=== PATIENT | male | born 1995 | race Caucasian/White ===

== ENCOUNTER 2019-09-18 06:54 | Emergency (ER) | payer BC ==
[~2019-09-18] VITALS: Ht 190.5 cm; Wt 71.8 kg
[~2019-09-18 06:54] MED LIST: ADDERALL10 MG PO; ADDERALL30 MG PO; ATIVAN 0.50.5 MG/TAB PO; CELEXA 20MG20 MG/TAB PO; IBU-6600 MG PO; IBU400 MG PO; NO HOME MEDICATIONS; NORCO 325 MG-51 TAB PO; PERCOCET 325 MG1 TA2 PO; ULTRAM 50MG TAB50 MG PO; ZOLOFT 50MG50 MG PO
[2019-09-18 07:00] VITALS: BP 143/93; PULSE 125; TEMP 98.2
[2019-09-18 07:39] LABS: BASO # 0.1 (0.0-0.2); BASO % 1.2 % (0.0-2.0); EOS % 0.2 % (0-4.0); GRAN # 2.9 (1.4-6.5); GRAN % 67.9 % (42.2-75.2); HEMATOCRIT 43.7 % (42.0-52.0); HEMOGLOBIN 15.3 g/dl (13.5-18.0); LYMPH # 0.8 (1.2-3.4); LYMPH % 17.9 % (20.0-51.0); MEAN CELL VOLUME 92 fl (80.0-100.0); MEAN CORPUSCULAR HEMOGLOBIN 32 pg (27.0-31.0); MEAN CORPUSCULAR HGB CONC 35 g/dl (33.0-37.0); MEAN PLATELET VOLUME 10.5 fl (7.4-10.4); MONO # 0.5 (0.1-0.6); MONO % 12.3 % (1.7-9.3); PLATELET COUNT 216 K/mm3 (130-400); RED BLOOD COUNT 4.76 M/mm3 (4.20-5.60)
[2019-09-18 08:05] LABS: ALBUMIN 5.5 gm/dL (3.5-5.0); BILIRUBIN,TOTAL 1.4 mg/dL (0.0-1.0); CREATININE, serum 0.69 (0.66-1.25); MAGNESIUM 1.1 mg/dL (1.6-2.3); POTASSIUM 3.1 mmol/L (3.4-5.0); TOTAL PROTEIN 8.8 gm/dL (6.4-8.2)
[2019-09-18 08:21] LABS: PROLACTIN 23.1 ng/mL (3.7-17.9)
[2019-09-18] MEDS ORDERED: LIBRIUM 25M25 MG/CAP PO (08:32)
[2019-09-18] MEDS ORDERED: KEPPRA 500MG500 MG PO (08:32)
[2019-09-18] MEDS ORDERED: MAG-OX 400400 MG/TAB PO (08:36)
[2019-09-18] MEDS ORDERED: K-TAB10 PO (08:36)
== END 2019-09-18 19:20 | disposition home or self-care (01) ==
LOC: COL.ER 06:54
PROVIDERS: Emergency Medicine
DX: G40.909 Epilepsy, unspecified, not intractable, without status epilepticus (principal)
CPT/HCPCS: J1953; J2060; J2405; J3475; J3480; J7030

== ENCOUNTER → 2019-11-06 | Outpatient (CLI) | payer BC ==
[~2019-11-06] MED LIST changes: +K-TAB10 PO; +KEPPRA 500MG500 MG PO; +LIBRIUM 25M25 MG/CAP PO; +MAG-OX 400400 MG/TAB PO
== END ==
LOC: COL.RAD 10:41
DX: N50.9 Disorder of male genital organs, unspecified (principal)

== ENCOUNTER 2020-03-02 20:34 | Emergency (ER) | payer BC ==
[~2020-03-02] VITALS: Ht 185.4 cm; Wt 72.7 kg
[2020-03-02 20:45] VITALS: TEMP 98.5
[2020-03-02 21:20] LABS: BASO % 0.2 % (0.0-2.0); EOS % 0.1 % (0-4.0); GRAN # 9.4 (1.4-6.5); GRAN % 73.6 % (42.2-75.2); HEMATOCRIT 37.8 % (42.0-52.0); HEMOGLOBIN 13.2 g/dl (13.5-18.0); LYMPH # 2.3 (1.2-3.4); LYMPH % 17.9 % (20.0-51.0); MEAN CELL VOLUME 88 fl (80.0-100.0); MEAN CORPUSCULAR HEMOGLOBIN 31 pg (27.0-31.0); MEAN CORPUSCULAR HGB CONC 35 g/dl (33.0-37.0); MEAN PLATELET VOLUME 10.9 fl (7.4-10.4); MONO % 7.9 % (1.7-9.3); PLATELET COUNT 250 K/mm3 (130-400); RED BLOOD COUNT 4.29 M/mm3 (4.20-5.60); REDCELL DISTRIBUTION WIDTH-CV 12.2 % (11.5-14.5)
[2020-03-02 21:35] LABS: ALANINE AMINOTRANSFERASE 87 U/L (4-49); ALBUMIN 4.8 gm/dL (3.5-5.0); ALKALINE PHOSPHATASE 72 U/L (50-136); ANION GAP 13 mmol/L (7-16); AST,SGOT 104 U/L (15-37); BILIRUBIN,TOTAL 4.2 mg/dL (0.0-1.0); BLOOD UREA NITROGEN 17 mg/dL (9-20); C-REACTIVE PROTEIN 0.7 mg/dL (0.0-0.9); CALCIUM 9.5 mg/dL (8.4-10.2); CARBON DIOXIDE 28 mmol/L (22-30); CHLORIDE 93 mmol/L (98-107); CREATININE, serum 0.82 (0.66-1.25); GLUCOSE 115 mg/dL (74-106); LIPASE 100 U/L (23-300); MAGNESIUM 1.8 mg/dL (1.6-2.3); PHOSPHOROUS 1.2 mg/dL (2.5-4.5); POTASSIUM 3.2 mmol/L (3.4-5.0); SODIUM 134 mmol/L (137-145); TOTAL PROTEIN 8.1 gm/dL (6.4-8.2)
[2020-03-02 21:38] LABS: ALCOHOL(ethanol),MEDICAL < 10 mg/dL
[2020-03-02] MEDS ORDERED: ZOFRAN 4MG T4 MG/TAB PO (22:22)
[2020-03-02] MEDS ORDERED: K-DUR20 MEQ PO (22:22)
[2020-03-02 23:01] VITALS: BP 128/72; PULSE 50
== END 2020-03-02 23:02 | disposition home or self-care (01) ==
LOC: COL.ER 20:34
PROVIDERS: Emergency Medicine
DX: F10.239 Alcohol dependence with withdrawal, unspecified (principal); E87.6 Hypokalemia; R51 Headache
CPT/HCPCS: J2060; J7030

== ENCOUNTER 2021-03-12 15:27 | Observation (INO) | payer BC ==
[~2021-03-12] VITALS: Ht 190.5 cm; Wt 68.2 kg
[~2021-03-12 15:27] MED LIST changes: +K-DUR20 MEQ PO; +ZOFRAN 4MG T4 MG/TAB PO
[2021-03-12 15:43] LABS: BASO % 0.4 % (0.0-2.0); EOS % 0.4 % (0-4.0); GRAN # 4.8 (1.4-6.5); GRAN % 64.8 % (42.2-75.2); HEMATOCRIT 45.1 % (42.0-52.0); HEMOGLOBIN 15.7 g/dl (13.5-18.0); LYMPH # 1.8 (1.2-3.4); LYMPH % 24.5 % (20.0-51.0); MEAN CELL VOLUME 87 fl (80.0-100.0); MEAN CORPUSCULAR HEMOGLOBIN 30 pg (27.0-31.0); MEAN CORPUSCULAR HGB CONC 35 g/dl (33.0-37.0); MEAN PLATELET VOLUME 10.5 fl (7.4-10.4); MONO # 0.7 (0.1-0.6); MONO % 9.6 % (1.7-9.3); PLATELET COUNT 280 K/mm3 (130-400); RED BLOOD COUNT 5.21 M/mm3 (4.20-5.60); REDCELL DISTRIBUTION WIDTH-CV 13.5 % (11.5-14.5)
[2021-03-12 16:03] LABS: ALBUMIN 4.5 gm/dL (3.5-5.0); ALKALINE PHOSPHATASE 91 U/L (50-136); ANION GAP 13 mmol/L (7-16); AST,SGOT 98 U/L (15-37); BILIRUBIN,TOTAL 3.4 mg/dL (0.0-1.0); BLOOD UREA NITROGEN 12 mg/dL (9-20); CALCIUM 9.6 mg/dL (8.4-10.2); CARBON DIOXIDE 19 mmol/L (22-30); CHLORIDE 97 mmol/L (98-107); CREATININE, serum 0.74 (0.66-1.25); GLUCOSE 152 mg/dL (74-106); MAGNESIUM 1.8 mg/dL (1.6-2.3); POTASSIUM 4.6 mmol/L (3.4-5.0); SODIUM 129 mmol/L (137-145); TOTAL PROTEIN 7.7 gm/dL (6.4-8.2)
[2021-03-12 16:04] LABS: ALCOHOL(ethanol),MEDICAL < 10 mg/dL
[2021-03-12] MEDS ORDERED: KLONOPIN2 MG PO (16:21)
[2021-03-12] MEDS ORDERED: DESYREL 100MG100 MG PO (16:23)
[2021-03-12] MEDS ORDERED: INDERAL 20MG20 MG PO (16:23)
[2021-03-12] MEDS ORDERED: NEURONTIN600 MG/TAB PO (16:24)
[2021-03-12 17:10] LABS: ALANINE AMINOTRANSFERASE 32 U/L (4-49)
[2021-03-12 17:15] LABS: COLLECTION METHOD CLEAN CATCH
[2021-03-12 17:20] LABS: MUCOUS Present /lpf; PH 6 (5-8); SQUAMOUS EPITHELIAL None Seen /hpf; URINE APPEARANCE Hazy; URINE BACTERIA None Seen /hpf; URINE BILIRUBIN Negative (NEGATIVE); URINE BLOOD Negative (NEGATIVE); URINE COLOR Yellow; URINE GLUCOSE 1+ (NEGATIVE); URINE KETONE 2+ (NEGATIVE); URINE LEUKOCYTE ESTERASE Negative (NEGATIVE); URINE NITRATE Negative (NEGATIVE); URINE PROTEIN(semi-quant) 1+ (NEGATIVE); URINE RBC 0-2 /hpf; URINE UROBILINOGEN Negative (NEGATIVE)
[2021-03-12] MEDS ORDERED: SEROQUEL300 MG PO (18:22)
[2021-03-12] MEDS ORDERED: ZOLOFT 100MG100 MG PO (18:23)
[2021-03-12 19:15] LABS: TRICYCLIC ANTIDEPRESS URINE NEGATIVE
[2021-03-13] VITALS (9 sets, daily range): BP systolic 107–159; BP diastolic 50–93; PULSE 47–90; TEMP 97.8–99.1
--- NOTE | 2021-03-13 01:40 | NUR ---
Alfredo came up last night for alcohol withdarwal and seizure activity. He is alert x4,Independent. He is on seizure precautions. His CIWA is 7, he got ativan 1mg for he said that he is seeing things. He said that he is having visual hallucinations. He seems find for me. He had sandwich tray and finish the whole snacks. Otherwise he is resting comfortably in bed. Call light within reach. Continue to monitor.
[2021-03-13 07:06] LABS: BASO % 0.5 % (0.0-2.0); EOS # 0.1 (0.0-0.7); EOS % 2.3 % (0-4.0); GRAN # 2.8 (1.4-6.5); GRAN % 49.1 % (42.2-75.2); HEMATOCRIT 39.2 % (42.0-52.0); LYMPH # 2.1 (1.2-3.4); LYMPH % 37.3 % (20.0-51.0); MEAN CELL VOLUME 89 fl (80.0-100.0); MEAN CORPUSCULAR HEMOGLOBIN 30 pg (27.0-31.0); MEAN CORPUSCULAR HGB CONC 34 g/dl (33.0-37.0); MEAN PLATELET VOLUME 11.6 fl (7.4-10.4); MONO # 0.6 (0.1-0.6); MONO % 10.5 % (1.7-9.3); PLATELET COUNT 187 K/mm3 (130-400); RED BLOOD COUNT 4.39 M/mm3 (4.20-5.60)
[2021-03-13 07:16] LABS: CALCIUM 8.3 mg/dL (8.4-10.2); CREATININE, serum 0.76 (0.66-1.25); HEMOGLOBIN 13.2 g/dl (13.5-18.0); POTASSIUM 3.3 mmol/L (3.4-5.0)
--- NOTE | 2021-03-13 08:00 | NUR ---
PT WAS SLEEPING UPON ENTRY, APPEARED COMFORTABLE, WOKE PT UP TO TAKE MEDICATIONS, ASKED IF PT HAVING PAIN AND HE SAID YES BUT DID NOT ELABORATE FURTHER BEFORE CLOSING EYES AND LAYING BACK DOWN. ASSESSMENT PERFORMED, PT DID NOT QUALIFY FOR ATIVAN, IV FLUIDS INFUSING, NO OTHER NEEDS
--- NOTE | 2021-03-13 12:31 | NUR ---
PT SCORED 4 FOR CIWA, PULLED ATIVAN TO GIVE BUT PT SLEEPING COMFORTABLY SO NOT GIVEN.
--- NOTE | 2021-03-13 13:05 | NUR ---
Attempted assessment. Patient was sleepy and could not complete assessment. SW attempted contact with parent Dalia Landrum. Mother reports that she has not spoke with her son since before March and he had moved to . Mother reports that she did not know that he moved back to this area. Last PCP is Dr. Steen. Mother denies knowing anything else. Will attempt assessment again when client is more alert.
--- NOTE | 2021-03-13 15:54 | NUR ---
Patient more alert, reports that his PCP is Dr. Kavita Jeff. Patient reports that he could stay with his mother until he obtains an apartment in [facility] which he plans to do. Patient shares that he has a nebulizer that he uses prn. Patient indicated that he has heart medications but does not have epq for heart. Educated on services and supports. NF.
--- NOTE | 2021-03-13 16:05 | NUR ---
PT REPORTED SEEING A SHIMMER ON ITEMS IN THE ROOM AND REQUESTED ATIVAN, NEW SET OF VITALS TAKEN, PT DID NOT QUALIFY FOR ATIVAN. NO TREMORS, APPEARED CALM IN THE ROOM, NO OTHER NEEDS
--- NOTE | 2021-03-13 17:22 | NUR ---
pt pleasant, reports shimmering in visual field, not requiring ativan during shift, no other needs
--- NOTE | 2021-03-14 00:19 | NUR ---
Tori had a good shower last night. He complain of chest pain but he refused to get Tylenol and Motrin. I said he cannot get more stronger pain meds other than that. He got his night meds including seroquel and trazodone. He is asking fro his Ativan. I said there is scoring for Ativan to administer and he is not qualify for that. He seems upset. He mentioned it again to EMPLOYEE ADVISER when she did the VS. I went in there and I told him same thing. He agreed. He is sleeping this time. Continue to follow.
[2021-03-14 03:56] VITALS: BP 135/56; PULSE 72; TEMP 98.4
[2021-03-14 07:33] VITALS: BP 118/69; PULSE 44; TEMP 98.4
[2021-03-14 08:10] LABS: BASO % 0.7 % (0.0-2.0); EOS # 0.3 (0.0-0.7); EOS % 4.9 % (0-4.0); GRAN # 2.1 (1.4-6.5); GRAN % 36.9 % (42.2-75.2); HEMATOCRIT 37.1 % (42.0-52.0); HEMOGLOBIN 12.3 g/dl (13.5-18.0); LYMPH # 2.5 (1.2-3.4); LYMPH % 45.8 % (20.0-51.0); MEAN CELL VOLUME 92 fl (80.0-100.0); MEAN CORPUSCULAR HEMOGLOBIN 30 pg (27.0-31.0); MEAN CORPUSCULAR HGB CONC 33 g/dl (33.0-37.0); MEAN PLATELET VOLUME 11.6 fl (7.4-10.4); MONO # 0.6 (0.1-0.6); MONO % 11.5 % (1.7-9.3); PLATELET COUNT 159 K/mm3 (130-400); RED BLOOD COUNT 4.04 M/mm3 (4.20-5.60); REDCELL DISTRIBUTION WIDTH-CV 14.3 % (11.5-14.5)
--- NOTE | 2021-03-14 08:15 | NUR ---
RECIEVED MULTIPLE CALLS FROM TELE IN AM REPORTING HR IN LOW 30'S. VITALS OTHERWISE STABLE, PT IN DEEP SLEEP, WOKE PT UP AND PT DENIES SYMTPOMS OF BRADYCARDIA. HELD BETA BRYCE, CALLED PHARMACY ABOUT OTHER PSYCH MEDICATIONS, HELD MORNING DOSE DUE TO CAUSING PROLONGED QTC. CONTACTED PHYSICIAN, DEC PM DOSE OF SEROQUEL. PT ALSO REQUESTING NICODERM PATCH, OBTAINED ORDER FROM PHYSICIAN AND GAVE TO PT ALONG WITH OTHER NOT HELD MEDICATIONS. NO OTHER NEEDS
[2021-03-14 08:25] LABS: CALCIUM 8.2 mg/dL (8.4-10.2); CREATININE, serum 0.62 (0.66-1.25); MAGNESIUM 1.8 mg/dL (1.6-2.3); POTASSIUM 3.3 mmol/L (3.4-5.0)
[2021-03-14 09:56] VITALS: BP 139/81; PULSE 63
[2021-03-14 12:10] VITALS: BP 147/92; PULSE 67; TEMP 99.2
[2021-03-14] MEDS ORDERED: SEROQUEL50 MG PO (14:08)
--- NOTE | 2021-03-14 14:51 | NUR ---
DISCHARGE EDUCATION PROVIDED, IV REMOVED, PT ESCORTED OUT
== END 2021-03-14 15:03 | disposition home or self-care (01) ==
LOC: COL.ER 15:27 → MEDICAL 18:49
PROVIDERS: Internal Medicine; Nurse Practitioner; Student in an Organized Health Care Education/Training Program; ADMIT Internal Medicine
DX: F10.239 Alcohol dependence with withdrawal, unspecified (principal); G40.89 Other seizures; E87.1 Hypo-osmolality and hyponatremia; E87.6 Hypokalemia; S22.31XA Fracture of one rib, right side, initial encounter for closed fracture; E80.6 Other disorders of bilirubin metabolism; R00.1 Bradycardia, unspecified; I10 Essential (primary) hypertension; F41.8 Other specified anxiety disorders; F10.20 Alcohol dependence, uncomplicated; F17.200 Nicotine dependence, unspecified, uncomplicated; G62.9 Polyneuropathy, unspecified; Z79.899 Other long term (current) drug therapy
CPT/HCPCS: 99223-AI; 99231-AI; A9284; G0378; J2060; J2550; J7030

== ENCOUNTER 2021-11-09 11:23 | Inpatient (IN) | payer SELFPAY ==
[2021-11-09] VITALS (321 sets, daily range): BP systolic 89–118; BP diastolic 49–81; PULSE 68–88; TEMP 95–98.2; O2SAT 97–100
[~2021-11-09] VITALS: Ht 185.4 cm; Wt 67.7 kg
[~2021-11-09 11:23] MED LIST changes: +DESYREL 100MG100 MG PO; +INDERAL 20MG20 MG PO; +KLONOPIN2 MG PO; +NEURONTIN600 MG/TAB PO; +SEROQUEL300 MG PO; +SEROQUEL50 MG PO; +ZOLOFT 100MG100 MG PO
[2021-11-09 11:50] LABS: BASO # 0.1 K/mm3 (0.0-0.2); EOS # 0.2 K/mm3 (0.0-0.7); EOS % 3.3 % (0.0-4.0); GRAN # 2.4 K/mm3 (1.4-6.5); GRAN % 37.1 % (42.2-75.2); HEMOGLOBIN 13.9 g/dl (13.5-18.0); LYMPH # 3.3 K/mm3 (1.2-3.4); LYMPH % 51.7 % (20.0-51.0); MEAN CELL VOLUME 87 fl (80.0-100.0); MEAN CORPUSCULAR HEMOGLOBIN 30 pg (27-31); MEAN CORPUSCULAR HGB CONC 34 g/dl (33.0-37.0); MEAN PLATELET VOLUME 11.2 fl (7.4-10.4); MONO # 0.4 K/mm3 (0.1-0.6); MONO % 6.7 % (1.7-9.3); PLATELET COUNT 276 K/mm3 (130-400); RED BLOOD COUNT 4.69 M/mm3 (4.20-5.60); REDCELL DISTRIBUTION WIDTH-CV 12.2 % (11.5-14.5)
[2021-11-09 12:17] LABS: ALANINE AMINOTRANSFERASE 41 U/L (0-55); ALBUMIN 4.4 gm/dL (3.5-5.0); ALKALINE PHOSPHATASE 75 U/L (40-150); ANION GAP 11 mmol/L (7-16); AST,SGOT 49 U/L (5-34); BILIRUBIN,TOTAL 0.5 mg/dL (0.2-1.2); BLOOD UREA NITROGEN 8 mg/dL (9-21); CALCIUM 8.5 mg/dL (8.4-10.2); CARBON DIOXIDE 27 mmol/L (22-29); CHLORIDE 109 mmol/L (98-107); CREATININE, serum 0.72 mg/dL (0.72-1.25); GLUCOSE 91 mg/dL (70-99); POTASSIUM 3.7 mmol/L (3.5-4.5); SODIUM 147 mmol/L (136-145); TOTAL PROTEIN 7.3 gm/dL (6.2-8.1)
[2021-11-09 12:19] LABS: ACETAMINOPHEN < 1.0 ug/mL (10-30); SALICYLATE < 5.0 mg/dL (15.0-30.0)
[2021-11-09 12:21] LABS: ALCOHOL(ethanol),MEDICAL 350 mg/dL (0-10)
[2021-11-09 12:24] LABS: TRICYCLIC ANTIDEPRESS URINE POSITIVE
--- NOTE | 2021-11-09 13:06 | NUR ---
Pt's cell phone and wallet given to security by TERRY Shaffer
--- NOTE | 2021-11-09 14:00 | NUR ---
BearHugger applied on low heat setting
[2021-11-09] MEDS ORDERED: REVIA 50MG TABL50 MG PO (14:30)
[2021-11-09] MEDS ORDERED: BUSPAR10 MG (14:30)
--- NOTE | 2021-11-09 15:00 | NUR ---
Poison Control notifed of recent EKG and labs - advice relayed to MD Hunter
[2021-11-09 15:36] LABS: ARTERIAL BLOOD GAS BASE EXCESS 0.1 (-2-2); ARTERIAL BLOOD GAS HCO3 24.6 meq/L (22-26); ARTERIAL BLOOD GAS PCO2 39.5 mmHg (35-45); ARTERIAL BLOOD GAS PO2 110.9 mmHg (80-100); ARTERIAL BLOOD GAS pH 7.41 (7.35-7.45)
[2021-11-09 16:41] LABS: CALCIUM 7.7 mg/dL (8.4-10.2); CREATININE, serum 0.6 mg/dL (0.72-1.25); POTASSIUM 3.6 mmol/L (3.5-4.5)
--- NOTE | 2021-11-09 17:00 | NUR ---
Poison Control notifed of recent EKG and labs - advice relayed to MD Hunter
--- NOTE | 2021-11-09 17:45 | NUR ---
MD Adin in room assessing pt
--- NOTE | 2021-11-09 19:00 | NUR ---
Received report from TERRY Gutierrez.
--- NOTE | 2021-11-09 19:45 | NUR ---
Patient resting quietly in bed. Remains on ventilator, tolerating well; all vitals within normal limits. Receiving fentanyl, propofol, and levophed drips. Patient withdraws from pain although he does not open eyes or follow verbal commands.
[2021-11-09 21:01] LABS: CREATININE, serum 0.64 mg/dL (0.72-1.25); MAGNESIUM 1.7 mg/dL (1.6-2.6)
[2021-11-10] VITALS (667 sets, daily range): BP systolic 122–142; BP diastolic 76–97; PULSE 47–86; TEMP 97.2–100.6; O2SAT 75–100
[2021-11-10 00:25] LABS: HEMATOCRIT 34.3 % (42.0-52.0); HEMOGLOBIN 11.4 g/dl (13.5-18.0)
[2021-11-10 04:20] LABS: ARTERIAL BLD GAS O2 SATURATION 98.4 % (92-100); ARTERIAL BLD GAS TCO2 CT 22.1; ARTERIAL BLOOD GAS BASE EXCESS -2.1 (-2-2); ARTERIAL BLOOD GAS HCO3 21.1 meq/L (22-26); ARTERIAL BLOOD GAS PCO2 31.5 mmHg (35-45); ARTERIAL BLOOD GAS PO2 112.1 mmHg (80-100); ARTERIAL BLOOD GAS pH 7.44 (7.35-7.45)
[2021-11-10 04:41] LABS: BASO # 0.1 K/mm3 (0.0-0.2); BASO % 0.6 % (0.0-2.0); EOS # 0.2 K/mm3 (0.0-0.7); EOS % 2.4 % (0.0-4.0); GRAN # 5.2 K/mm3 (1.4-6.5); GRAN % 58.8 % (42.2-75.2); HEMOGLOBIN 11.8 g/dl (13.5-18.0); LYMPH # 2.9 K/mm3 (1.2-3.4); LYMPH % 32.5 % (20.0-51.0); MEAN CELL VOLUME 87 fl (80.0-100.0); MEAN CORPUSCULAR HEMOGLOBIN 30 pg (27-31); MEAN CORPUSCULAR HGB CONC 34 g/dl (33.0-37.0); MEAN PLATELET VOLUME 11.3 fl (7.4-10.4); MONO # 0.5 K/mm3 (0.1-0.6); MONO % 5.4 % (1.7-9.3); PLATELET COUNT 182 K/mm3 (130-400); RED BLOOD COUNT 3.95 M/mm3 (4.20-5.60); REDCELL DISTRIBUTION WIDTH-CV 12.4 % (11.5-14.5)
[2021-11-10 04:46] LABS: HEMATOCRIT 34.5 % (42.0-52.0)
[2021-11-10 04:57] LABS: ALBUMIN 3.5 gm/dL (3.5-5.0); CALCIUM 8.3 mg/dL (8.4-10.2); CREATININE, serum 0.66 mg/dL (0.72-1.25); MAGNESIUM 1.8 mg/dL (1.6-2.6); PHOSPHOROUS 3.4 mg/dL (2.3-4.7); POTASSIUM 3.8 mmol/L (3.5-4.5)
--- NOTE | 2021-11-10 05:19 | NUR ---
PATIENT ON SEDATION NOT READY FOR WEANING TRIAL.
--- NOTE | 2021-11-10 09:35 | NUR ---
All sedation stopped at [address] Oakley. At 0925 patient opens eyes spontaneously and follows commands appropriatelly. All extremities moving on bed. Extubated at 0925; Tolerated well with no concerns. Will continue to monitor.
--- NOTE | 2021-11-10 09:40 | NUR ---
patient following commands and tolerating the completion of sedation, patient was extubated at 0925 with rn at bedside
--- NOTE | 2021-11-10 10:58 | NUR ---
The patient was admitted for an overdose and was intubated. He remains on the vent. MARIA M contacted the patient's mother, Dalia Landrum (ph#[phone]), to complete intake. Dalia states that the patient has been in and out of a lot of places for awhile now. He had been staying with her daughter (the patient's sister), America Landrum (ph#[phone]), before being admitted. She states that due to the patient's alcohol use, no family really wants him staying with them. She states that she has currently lost her place and is also staying with America at this time. Dalia states that the patient has been to rehab multiples times and that he really liked [facility]. She is hopeful he will be open to rehab upon discharge. The patient is self pay. Dalia states that the patient was working for [employer], but is no longer there. She states that his insurance through [employer] may still be active. She plans on going through the patient's belongings to try and find an insurance card. MARIA M provided her with this SW's phone number. MARIA M consulted financial counseling. Dalia states that the patient had got set up with Dr. Timothy Steen for primary care. He does not have a DPOA-HC. Dalia states that the patient is not and does not have any children. His parents are his next of kin: Dalia and Hans Landrum. Hans lives in [place]. MARIA M informed Dalia how her and Hans are the patient's next of kin. Dalia verbalized understanding. She states that they would probably like for their daughter, America, to be the designated person to call for updates. The patient will need to be screened by [facility], once medically cleared. SW to continue to follow. *Discharge plan: Undetermined at this time*
--- NOTE | 2021-11-10 12:30 | NUR ---
Awake and resting in bed; food tray ordered per patient request.
--- NOTE | 2021-11-10 13:04 | NUR ---
Manjinder, with financial counseling, checked into the patient's insurance and verified that his insurance has .
--- NOTE | 2021-11-10 18:06 | NUR ---
Discussed plan of care with poison control. Recommended to obtain one more EKG to trend QRS.
--- NOTE | 2021-11-10 18:50 | NUR ---
Alert and oriented and resting in bed; cooperative with staff. VS stable at this time. Castellanos d/c'd at this time and patient requesting dinner. Will continue to monitor.
[2021-11-11] VITALS (293 sets, daily range): BP systolic 119–148; BP diastolic 75–97; PULSE 74–103; TEMP 97.7–99; O2SAT 78–100
[2021-11-11 06:00] LABS: BASO % 0.3 % (0.0-2.0); EOS # 0.1 K/mm3 (0.0-0.7); EOS % 0.7 % (0.0-4.0); GRAN # 13.3 K/mm3 (1.4-6.5); GRAN % 86.4 % (42.2-75.2); HEMATOCRIT 39.1 % (42.0-52.0); HEMOGLOBIN 13.2 g/dl (13.5-18.0); LYMPH # 1.2 K/mm3 (1.2-3.4); LYMPH % 7.6 % (20.0-51.0); MEAN CELL VOLUME 88 fl (80.0-100.0); MEAN CORPUSCULAR HEMOGLOBIN 30 pg (27-31); MEAN CORPUSCULAR HGB CONC 34 g/dl (33.0-37.0); MEAN PLATELET VOLUME 11.8 fl (7.4-10.4); MONO # 0.7 K/mm3 (0.1-0.6); MONO % 4.6 % (1.7-9.3); PLATELET COUNT 216 K/mm3 (130-400); RED BLOOD COUNT 4.46 M/mm3 (4.20-5.60); REDCELL DISTRIBUTION WIDTH-CV 12.2 % (11.5-14.5)
[2021-11-11 06:13] LABS: ALBUMIN 3.6 gm/dL (3.5-5.0); CALCIUM 8.6 mg/dL (8.4-10.2); CREATININE, serum 0.75 mg/dL (0.72-1.25); PHOSPHOROUS 3.2 mg/dL (2.3-4.7); POTASSIUM 3.6 mmol/L (3.5-4.5)
--- NOTE | 2021-11-11 08:38 | NUR ---
The patient's sister, America, arrived to the hospital yesterday, 11/10, and asked to speak to MARIA M. MARIA M met with America. America informed MARIA M of the events that led to the patient's overdose and hospitalization. SW provided support. MARIA M updated America on how psych or [facility] will screen the patient, once stable and will make recommendations on treatment. America verbalized understanding. The patient's RN yesterday notified MARIA M that Dr. Lopez, the psychiatrist, screened the patient. Dr. Lopez would recommend inpatient alcohol treatment and the patient is agreeable to this. He would be interested in going to [facility] in [place] again. The patient no longer has insurance. MARIA M contacted Laila in admissions at [facility] to inquire whether they take no insurance and the cost. Laila states that they do take no insurance, but that the patient would owe $13,500 for 28 days. MARIA M updated the patient's RN of this. The RN was going to notify Dr. Lopez. [facility] in [place] ph#[phone] fax#[phone]
--- NOTE | 2021-11-11 10:03 | NUR ---
MARIA M attended clinical rounds. The patient has been medically cleared and the team is ready for the patient to be screened by [facility] for inpatient psych treatment. MARIA M contacted and faxed the patient's records to [facility]. The loan underwriter reports that they will need a recent alcohol level on the patient. They cannot screen the patient until here alcohol level is under 100. MARIA M notified the PA and his RN.
[2021-11-11 10:34] LABS: COLLECTION METHOD CLEAN CATCH
[2021-11-11 10:46] LABS: PH 7 (5-8); SQUAMOUS EPITHELIAL None Seen /hpf (0-10); URINE APPEARANCE Clear (CLEAR/HAZY); URINE BACTERIA None Seen /hpf (NONE SEEN); URINE BILIRUBIN Negative (NEGATIVE); URINE BLOOD 2+ (NEGATIVE); URINE COLOR Straw (YELLOW); URINE GLUCOSE Negative (NEGATIVE); URINE KETONE Negative (NEGATIVE); URINE LEUKOCYTE ESTERASE Negative (NEGATIVE); URINE NITRATE Negative (NEGATIVE); URINE PROTEIN(semi-quant) Negative (NEGATIVE); URINE RBC >50 /hpf (0-2); URINE UROBILINOGEN Negative (NEGATIVE)
--- NOTE | 2021-11-11 11:07 | NUR ---
Initial visit; Patient states he is doing better and appreciates visits. He thanked Mumps Developer for visit, understanding and offering God's blessings.
--- NOTE | 2021-11-11 12:40 | NUR ---
[facility] screened the patient and the screener updated the patient's RN. The patient's RN reports that the patient is wanting to go to [facility] for inpatient alcohol treatment. The screener at [facility] is supportive of this. If the patient is unable to get into [facility], the screener states that the patient is safe to return home. MARIA M met with the patient and updated him about [facility] costing $13,500 for $28 days. The patient verbalized understanding and states that he has a brookylnn, Selvin Chanel, that told him he would pay for rehab for the patient. He plans to get in contact with Selvin, but does not have his cell phone. MARIA M also informed him of if [facility] cannot take or his friend is unable to pay, then [facility] said he could discharge home. Due to the patient being self pay, MARIA M educated him on [facility] and how he can contact [facility] for them to screen him and help with getting him set up with inpatient/outpatient treatment. SW provided him with [facility] phone number. The patient verbalized understanding. MARIA M contacted and updated the patient's sister, America. America states that her and her family do not have the funds to pay for inpatient rehab. America states that if the patient does discharge, that the patient cannot stay with her. He states that their father is upset with the patient, but that the patient may be able to stay with their father in [place]. America and her mother are looking at other facility options that are [place] based and where the patient would be in them longer. America states that she does not have the patient's phone and that EMS or the police took it. MARIA M contacted Rai at [facility]. The tech that worked with the patient was on today. The tech states that the patient had his phone with him in the ED. MARIA M contacted [employer]. Security found two bags of the patient's belongings, along with his phone in the ED. Security delivered them to the patient's room. He had some pill bottles and cigarettes in the bags. MARIA M notified the patient's RN of this. MARIA M contacted and faxed a referral to Laila at [facility]. Laila states that they do have beds available, but will need to review the referral. Awaiting screen and for the patient to hear back from his friend about the money. *Discharge plan: [facility] inpatient alcohol treatment or home*
--- NOTE | 2021-11-11 14:54 | NUR ---
MARIA M followed up with the patient about his friend being able to pay the $13,500 for [facility]. The patient states that he did check with his friend and his friend is unable to help him at this time. The patient states that he plans on going back to [place] and try and stay with his father. He states that he has a job lined up at the hospital in [place] and plans to start that and meet his new primary care doctor, Dr. Atkinson, in [place]. Once his health insurance is active through his new employer, he will try and get into [facility]. MARIA M updated the PA on the above. MARIA M then inquired if the patient would be interested in getting set up at [facility] in [place] for outpatient mental health services. The patient was interested in this. MARIA M contacted Bonnie at [facility] in [place]. Bonnie states that since the patient is new to them, she will send my name and phone number to admissions and admissions will contact this SW.
--- NOTE | 2021-11-11 19:05 | NUR ---
RECEIVED REPORT FROM TERRY KENNEY. PT SITTING ON EDGE OF BED PLAYING ON COMPUTER. PT ON RA. VSS. CALL LIGHT AND URINAL WITHIN REACH.
[2021-11-12] VITALS: BP 122/70; PULSE 70; TEMP 98.4
[2021-11-12 04:00] VITALS: BP 116/68; PULSE 71; TEMP 98.7
[2021-11-12 05:48] LABS: BASO % 0.3 % (0.0-2.0); EOS # 0.2 K/mm3 (0.0-0.7); EOS % 2.1 % (0.0-4.0); GRAN # 8.1 K/mm3 (1.4-6.5); GRAN % 72.4 % (42.2-75.2); HEMATOCRIT 37.8 % (42.0-52.0); HEMOGLOBIN 12.6 g/dl (13.5-18.0); LYMPH % 17.7 % (20.0-51.0); MEAN CELL VOLUME 89 fl (80.0-100.0); MEAN CORPUSCULAR HEMOGLOBIN 30 pg (27-31); MEAN CORPUSCULAR HGB CONC 33 g/dl (33.0-37.0); MEAN PLATELET VOLUME 11.6 fl (7.4-10.4); MONO # 0.8 K/mm3 (0.1-0.6); MONO % 7.2 % (1.7-9.3); PLATELET COUNT 197 K/mm3 (130-400); RED BLOOD COUNT 4.25 M/mm3 (4.20-5.60); REDCELL DISTRIBUTION WIDTH-CV 12.2 % (11.5-14.5)
[2021-11-12 06:05] LABS: ALBUMIN 3.4 gm/dL (3.5-5.0); CALCIUM 8.9 mg/dL (8.4-10.2); CREATININE, serum 0.69 mg/dL (0.72-1.25); MAGNESIUM 1.8 mg/dL (1.6-2.6); PHOSPHOROUS 3.5 mg/dL (2.3-4.7); POTASSIUM 3.7 mmol/L (3.5-4.5)
[2021-11-12 08:00] VITALS: BP 116/68; PULSE 95; TEMP 98.2
--- NOTE | 2021-11-12 09:31 | NUR ---
Follow-up visit; Patient appears to be in pensive mode. reiterated to him how she prays he will get help for his illness and take care of his body. He thanked for looking in on him again.
--- NOTE | 2021-11-12 10:30 | NUR ---
Pt has discharge orders. Discharge education completed. Pt's sister America called to inform pt is ready to be picked up. America is not happy that pt is being discharged without pt being accepted into a rehabilation facitliy - America educated on medical clearance/discharge instructions on psychiatric team and [facility] team. Pt states there is a facility in [place] that she in interested in sending pt to - but they would need the hospital to perform GI-ZVA-Yssfwsoah tests prior to acceptance. TERRY Naranjo (Director), MD Adelina and MARIA M Osuna informed and involved. MARIA M Osuna has been in contact with pt, pt's sister America and the Rehab facility in [place].
--- NOTE | 2021-11-12 12:30 | NUR ---
egg worker spoke with patient and his sister and mother and confirmed that patient's father will not allow patient to live with him. Patient's sister wanted patient to apply for [facility] inpatient care in [place]. Patient verbalized agreement to this plan and completed the application. Patient was accepted to this treatment today. Worker confirmed with patient's sister and mother that they are attempting to secure $1,000.00 and transportation and will communicate this confirmation with social media intern at 2:30pm today. Worker confirmed with sister and mother that patient will be picked up today at 4:00pm. Worker confirmed that the [facility]dc does not have any openings today and that patient was not on the do not allow list. If patient does not enter the [facility] program, he can continue to call the fdc checking on openings.
--- NOTE | 2021-11-12 15:03 | NUR ---
Discharge education continued: medications to be continued reviewed with pt - pt then stated and showed me a information packet for the Rehab Facility pt is supposed to be going to that states that any type of psychotropic medications are not allowed. Pt states "I can't stop taking these medications, I will have a panic attack that can even cause me to have a seizure". Dwayne at [facility] called to inquire about the rule of no psychiatric medications and he cofirmed "we will decline anyone who needs psychotropic medications" MD Adelina is calling MD John to see if pt will be safe to stop all prescribed meds for discharge and attend Rehab facility.
--- NOTE | 2021-11-12 15:10 | NUR ---
Reece Lazaro, with admissions at [facility], contacted MARIA M. Reece reports that she will send this paperwork that the patient will need to fill out before they can schedule an appointment with him. She states that if the patient fills out the paperwork at the hospital, we can email the paperwork back to her. If not, the patient will need to return the paperwork to the [place] office. MARIA M received the paperwork and provided it to the patient and updated him on the above. The patient verbalized understanding.
--- NOTE | 2021-11-12 15:31 | NUR ---
MD Adelina informed me he spoke with MD John and states that pt should be medically okay to discontinue all psychotropic medications and that ETOH abuse is the pt's main concern. Pt informed of this - pt is not happy about being off his psych meds but is agreeable. MD Adelina, MARIA M Guerrero and TERRY Naranjo aware. Billie garcia's sister called and informed as well - she is on her way to shrimp picker pt to take him to facility.
--- NOTE | 2021-11-12 15:35 | NUR ---
Patient will stop medications and now is accepted to [facility]. Family notified and will transport. Family has the $1,000. for acceptance.
[2021-11-12 16:18] LABS: HIV 1/2 Antibodies Non-Reactive; HIV-1p24 Antigen Non-Reactive
--- NOTE | 2021-11-12 16:40 | NUR ---
Pt discharged with all belongings. Pt picked up by pt's sister Billie
[2021-11-13 18:08] LABS: TB GOLD INTERPRETATION Negative (Negative)
== END 2021-11-12 17:38 | disposition home or self-care (01) | DRG 917 ==
LOC: COL.ER 11:23 → ICU 12:49
PROVIDERS: Internal Medicine; Internal Medicine Critical Care Medicine; Internal Medicine Pulmonary Disease; Personal Emergency Response Attendant; Physician Assistant; Student in an Organized Health Care Education/Training Program; ADMIT Internal Medicine
PROC: 02HV33Z Insertion of Infusion Device into Superior Vena Cava, Percutaneous Approach (ICD-10-PCS; principal; 2021-11-09)
PROC: 5A1935Z Respiratory Ventilation, Less than 24 Consecutive Hours (ICD-10-PCS; 2021-11-09)
DX: T43.592A Poisoning by other antipsychotics and neuroleptics, intentional self-harm, initial encounter (principal); J96.01 Acute respiratory failure with hypoxia; G92.8 Other toxic encephalopathy; Q61.3 Polycystic kidney, unspecified; E87.0 Hyperosmolality and hypernatremia; F10.24 Alcohol dependence with alcohol-induced mood disorder; T42.4X2A Poisoning by benzodiazepines, intentional self-harm, initial encounter; F41.9 Anxiety disorder, unspecified; L94.9 Localized connective tissue disorder, unspecified; F32.A Depression, unspecified; T51.0X2A Toxic effect of ethanol, intentional self-harm, initial encounter; N18.9 Chronic kidney disease, unspecified; F17.210 Nicotine dependence, cigarettes, uncomplicated; E83.42 Hypomagnesemia; D72.829 Elevated white blood cell count, unspecified; Z20.822 Contact with and (suspected) exposure to COVID-19; Y90.8 Blood alcohol level of 240 mg/100 ml or more; Z56.0 Unemployment, unspecified
CPT/HCPCS: 99223-AI; 99233-AI; 99239; C1751; C1892; J0610; J1644; J2704; J3010; J3411; J3475; J3480; J7030; J7060

== ENCOUNTER 2023-09-11 15:42 | Emergency (ER) | payer SELFPAY ==
[~2023-09-11] VITALS: Ht 188 cm; Wt 72.7 kg
[~2023-09-11 15:42] MED LIST changes: +BUSPAR10 MG; +REVIA 50MG TABL50 MG PO
[2023-09-11 15:44] VITALS: TEMP 97.7
[2023-09-11 16:07] LABS: BASO # 0.1 K/mm3 (0.0-0.2); BASO % 0.9 % (0.0-2.0); EOS # 0.1 K/mm3 (0.0-0.7); EOS % 1.8 % (0.0-4.0); GRAN # 4.3 K/mm3 (1.4-6.5); GRAN % 64.2 % (42.2-75.2); HEMOGLOBIN 16.8 g/dl (13.5-18.0); LYMPH # 1.9 K/mm3 (1.2-3.4); LYMPH % 27.9 % (20.0-51.0); MEAN CELL VOLUME 88 fl (80.0-100.0); MEAN CORPUSCULAR HEMOGLOBIN 29 pg (27-31); MEAN CORPUSCULAR HGB CONC 34 g/dl (33.0-37.0); MEAN PLATELET VOLUME 11.4 fl (7.4-10.4); MONO # 0.3 K/mm3 (0.1-0.6); MONO % 4.6 % (1.7-9.3); PLATELET COUNT 289 K/mm3 (130-400); RED BLOOD COUNT 5.71 M/mm3 (4.20-5.60); REDCELL DISTRIBUTION WIDTH-CV 11.8 % (11.5-14.5)
[2023-09-11 16:21] LABS: ALANINE AMINOTRANSFERASE 15 U/L (0-55); ALBUMIN 4.8 gm/dL (3.5-5.0); ALKALINE PHOSPHATASE 56 U/L (40-150); ANION GAP 15 mmol/L (7-16); AST,SGOT 16 U/L (5-34); BILIRUBIN,TOTAL 0.7 mg/dL (0.2-1.2); BLOOD UREA NITROGEN 13 mg/dL (9-21); CALCIUM 10.3 mg/dL (8.4-10.2); CARBON DIOXIDE 19 mmol/L (22-29); CHLORIDE 104 mmol/L (98-107); GLUCOSE 117 mg/dL (70-99); POTASSIUM 5.1 mmol/L (3.5-4.5); SODIUM 138 mmol/L (136-145); TOTAL PROTEIN 8.4 gm/dL (6.2-8.1)
[2023-09-11 16:41] LABS: TSH w REFLEX 3.405 uIU/mL (0.350-4.940)
[2023-09-11 16:43] LABS: TROPONIN-I < 0.010 ng/mL (0.00-0.033)
[2023-09-11 18:10] LABS: COLLECTION METHOD CLEAN CATCH
[2023-09-11 18:26] LABS: TRICYCLIC ANTIDEPRESS URINE NEGATIVE
[2023-09-11 18:31] LABS: URINE APPEARANCE Clear (CLEAR/HAZY); URINE COLOR Yellow (YELLOW)
[2023-09-11 18:32] LABS: MUCOUS Present (NOT PRESENT); PH 5.5 (5.0-8.5); SQUAMOUS EPITHELIAL 0-2 /hpf (0-10); URINE BLOOD Negative (NEGATIVE); URINE GLUCOSE Negative (NEGATIVE); URINE KETONE Negative (NEGATIVE); URINE NITRATE Negative (NEGATIVE); URINE PROTEIN(semi-quant) 1+ (NEGATIVE); URINE RBC None Seen /hpf (0-2); URINE UROBILINOGEN 0.2 E.U/dL (0.2-1.0)
[2023-09-11] MEDS ORDERED: KEPPRA 500MG500 MG PO (18:32)
[2023-09-11 18:43] VITALS: BP 140/74; PULSE 76
== END 2023-09-11 18:46 | disposition home or self-care (01) ==
LOC: COL.ER 15:42
PROVIDERS: Emergency Medicine
DX: R56.9 Unspecified convulsions (principal)

== ENCOUNTER 2024-03-22 11:10 | Emergency (ER) | payer OTHER ==
[~2024-03-22] VITALS: Ht 185.4 cm; Wt 75.0 kg
[2024-03-22 11:11] VITALS: TEMP 98.7
[2024-03-22 11:27] LABS: BASO # 0.1 K/mm3 (0.0-0.2); BASO % 1.7 % (0.0-2.0); EOS # 0.3 K/mm3 (0.0-0.7); EOS % 4.2 % (0.0-4.0); GRAN # 2.8 K/mm3 (1.4-6.5); GRAN % 38.1 % (42.2-75.2); HEMATOCRIT 46.4 % (42.0-52.0); HEMOGLOBIN 15.8 g/dl (13.5-18.0); LYMPH # 3.8 K/mm3 (1.2-3.4); LYMPH % 52.1 % (20.0-51.0); MEAN CELL VOLUME 86 fl (80.0-100.0); MEAN CORPUSCULAR HEMOGLOBIN 29 pg (27-31); MEAN CORPUSCULAR HGB CONC 34 g/dl (33.0-37.0); MEAN PLATELET VOLUME 10.6 fl (7.4-10.4); MONO # 0.3 K/mm3 (0.1-0.6); MONO % 3.5 % (1.7-9.3); PLATELET COUNT 421 K/mm3 (130-400); REDCELL DISTRIBUTION WIDTH-CV 13.2 % (11.5-14.5)
[2024-03-22] MEDS ORDERED: Ondansetron 4 MG/2 ML VIAL IV ONE (11:30)
[2024-03-22] MEDS ORDERED: LR 1,000 ML IV ONE (11:30)
[2024-03-22 11:50] LABS: ALBUMIN 4.7 g/dL (3.5-5.0); BILIRUBIN,TOTAL 0.8 mg/dL (0.2-1.2); C-REACTIVE PROTEIN 0.03 mg/dL (0.00-0.50); CALCIUM 9.1 mg/dL (8.4-10.2); CREATININE, serum 0.77 mg/dL (0.72-1.25); POTASSIUM 3.7 mEq/L (3.5-4.5); TOTAL PROTEIN 7.9 g/dl (6.2-8.1)
--- NOTE | 2024-03-22 12:31 | NUR ---
hair worker requested to meet with patient as he has missed several appointments with Hannah Chavira (therapist at [facility]). Patient was pleasant and states he lives with his mother and does not have transportation. Worker provided [facility] [employer] and secured patient's insurance card ([employer] ) and provided it to patient access. Patient states that his telehealth visits have been cancelled or the call has been disconnected. Patient states that Hannah feels that he had missed some appointments and advised patient he could walk in today at 4:00. Patient states he cannot secure transport to come in today and therefore came to the ED. Patient states he does have a telehealth visit scheduled for April. Worker collaborated with patient's nurse regarding the above information.
[2024-03-22 13:03] LABS: COLLECTION METHOD CLEAN CATCH
[2024-03-22 13:21] LABS: URINE APPEARANCE CLEAR (CLEAR/HAZY); URINE BLOOD NEGATIVE (NEGATIVE); URINE COLOR YELLOW (YELLOW); URINE GLUCOSE NEGATIVE (NEGATIVE); URINE KETONE NEGATIVE (NEGATIVE); URINE NITRATE NEGATIVE (NEGATIVE); URINE PROTEIN(semi-quant) NEGATIVE (NEGATIVE)
--- NOTE | 2024-03-22 13:25 | NUR ---
bee worker provided patient with [employer] bus and Mobility Director (Rai Santo) phone number to call to see if patient qualifies for free or reduced rides.
[2024-03-22] MEDS ORDERED: KLONOPIN 1MG1 MG PO ×2 (13:51→13:52)
[2024-03-22 14:10] VITALS: BP 138/98; PULSE 80
== END 2024-03-22 14:10 | disposition home or self-care (01) ==
LOC: COL.ER 11:10
PROVIDERS: Family Medicine
DX: F10.231 Alcohol dependence with withdrawal delirium (principal); Z91.148 Patient's other noncompliance with medication regimen for other reason
CPT/HCPCS: J2405; J3360; J7120

== ENCOUNTER 2024-05-27 12:37 | Emergency (ER) | payer OTHER ==
[~2024-05-27] VITALS: Ht 185.4 cm; Wt 76.8 kg
[~2024-05-27 12:37] MED LIST changes: +KLONOPIN 1MG1 MG PO
[2024-05-27 12:38] VITALS: TEMP 98.6
[2024-05-27] MEDS ORDERED: clonazePAM 1 MG TAB PO ONE (13:15)
[2024-05-27 13:20] LABS: BASO % 0.4 % (0.0-2.0); GRAN # 9.4 K/mm3 (1.4-6.5); GRAN % 85.2 % (42.2-75.2); HEMATOCRIT 43.6 % (42.0-52.0); HEMOGLOBIN 15.1 g/dl (13.5-18.0); LYMPH # 0.9 K/mm3 (1.2-3.4); LYMPH % 8.5 % (20.0-51.0); MEAN CELL VOLUME 86 fl (80.0-100.0); MEAN CORPUSCULAR HEMOGLOBIN 30 pg (27-31); MEAN CORPUSCULAR HGB CONC 35 g/dl (33.0-37.0); MEAN PLATELET VOLUME 10.5 fl (7.4-10.4); MONO # 0.6 K/mm3 (0.1-0.6); MONO % 5.5 % (1.7-9.3); PLATELET COUNT 329 K/mm3 (130-400); RED BLOOD COUNT 5.09 M/mm3 (4.20-5.60); REDCELL DISTRIBUTION WIDTH-CV 12.5 % (11.5-14.5)
[2024-05-27 13:46] LABS: ALBUMIN 4.9 g/dL (3.5-5.0); BILIRUBIN,TOTAL 1.5 mg/dL (0.2-1.2); CALCIUM 10.2 mg/dL (8.4-10.2); CREATININE, serum 0.84 mg/dL (0.72-1.25); POTASSIUM 3.6 mEq/L (3.5-4.5); TOTAL PROTEIN 8.4 g/dl (6.2-8.1)
[2024-05-27 14:55] VITALS: BP 130/97; PULSE 78
--- NOTE | 2024-05-27 15:30 | NUR ---
MARIA M received call from TERRY Vyas in ED stating that she was informed that patient was seen sitting in waiting room and informed PT that he doesn't have a ride home. SW reviewed chart. Patient is documented to live with his mother Dalia Landrum ([phone]) in [place]. Patient does not have a PCP identified, uses [facility] pharmacy. Patient is covered by [facility] insurance. Per previous documentation from case management, patient was given [employer] bus and resources for transportation at previous ED visit. MARIA M notified TERRY Vyas that patient can utilize [employer] bus for ride home.
== END 2024-05-27 15:00 | disposition home or self-care (01) ==
LOC: COL.ER 12:37
PROVIDERS: Family Medicine
DX: G40.509 Epileptic seizures related to external causes, not intractable, without status epilepticus (principal)

== ENCOUNTER 2024-06-24 09:02 | Emergency (ER) | payer OTHER, MEDICAID ==
[~2024-06-24] VITALS: Ht 188 cm; Wt 77.3 kg
[2024-06-24 09:15] VITALS: TEMP 98.7
[2024-06-24] MEDS ORDERED: LORazepam 2 MG/ML 1 ML VIAL IV ONE (10:15)
[2024-06-24] MEDS ORDERED: NS 1,000 ML IV ONE (10:15)
[2024-06-24 10:23] LABS: BASO # 0.1 K/mm3 (0.0-0.2); BASO % 0.5 % (0.0-2.0); EOS % 0.4 % (0.0-4.0); GRAN % 63.7 % (42.2-75.2); HEMATOCRIT 49.1 % (42.0-52.0); LYMPH # 2.5 K/mm3 (1.2-3.4); LYMPH % 26.6 % (20.0-51.0); MEAN CELL VOLUME 82 fl (80.0-100.0); MEAN CORPUSCULAR HEMOGLOBIN 30 pg (27-31); MEAN CORPUSCULAR HGB CONC 37 g/dl (33.0-37.0); MONO # 0.8 K/mm3 (0.1-0.6); MONO % 8.5 % (1.7-9.3); PLATELET COUNT 289 K/mm3 (130-400); RED BLOOD COUNT 5.97 M/mm3 (4.20-5.60); REDCELL DISTRIBUTION WIDTH-CV 12.2 % (11.5-14.5)
[2024-06-24 10:41] LABS: ALANINE AMINOTRANSFERASE 208 U/L (0-55); ALBUMIN 4.6 g/dL (3.5-5.0); ALKALINE PHOSPHATASE 83 U/L (40-150); ANION GAP 18 mmol/L (7-16); AST,SGOT 219 U/L (5-34); BILIRUBIN,TOTAL 3.6 mg/dL (0.2-1.2); BLOOD UREA NITROGEN 11 mg/dL (9-21); CALCIUM 9.8 mg/dL (8.4-10.2); CHLORIDE 95 mEq/L (98-107); CREATININE, serum 1.11 mg/dL (0.72-1.25); GLUCOSE 113 mg/dL (70-99); POTASSIUM 3.4 mEq/L (3.5-4.5); SODIUM 136 mEq/L (136-145); TOTAL PROTEIN 7.9 g/dl (6.2-8.1)
[2024-06-24 10:42] LABS: ALCOHOL(ethanol),MEDICAL < 10 mg/dL (0-10)
[2024-06-24 11:15] VITALS: BP 156/97; PULSE 84
== END 2024-06-24 11:25 | disposition home or self-care (01) ==
LOC: COL.ER 09:02
PROVIDERS: Personal Emergency Response Attendant
DX: F13.20 Sedative, hypnotic or anxiolytic dependence, uncomplicated (principal); F10.20 Alcohol dependence, uncomplicated
CPT/HCPCS: J2060; J7030